=== PATIENT | female | born 1940 | race Caucasian/White ===

== ENCOUNTER 2017-02-11 10:07 | Emergency (ER) | payer OTHER ==
[~2017-02-11] VITALS: Ht 157.5 cm; Wt 80.0 kg
[2017-02-11] MEDS ORDERED: PERCOCET 5/31 TABLET PO (12:50)
[2017-02-11 13:48] VITALS: BP 130/79
== END 2017-02-11 13:50 | disposition home or self-care (01) ==
LOC: EME 10:07
PROC: 2W3FX1Z Immobilization of Left Hand using Splint (ICD-10-PCS; principal; 2017-02-11)
DX: S62.311A Displaced fracture of base of second metacarpal bone, left hand, initial encounter for closed fracture (principal); Y92.838 Other recreation area as the place of occurrence of the external cause; Y93.A1 Activity, exercise machines primarily for cardiorespiratory conditioning; W22.8XXA Striking against or struck by other objects, initial encounter; Z88.2 Allergy status to sulfonamides
CPT/HCPCS: 73110; 99281; 99284